=== PATIENT | male | born 1960 | race Caucasian/White ===

== ENCOUNTER → 2017-04-19 | Outpatient (CLI) | payer OTHER ==
--- NOTE | 2017-04-19 11:07 | PCVCIMAG ---
EXAM: BILATERAL CAROTID DUPLEX INDICATION: Carotid Occlusive Disease. FINDINGS: Doppler Measurements (centimeters per second): RIGHT: Peak CCA-70, Peak ECA-143, Diastolic ICA-52, Peak ICA-141, ICA/CCA Ratio-2.0. LEFT: Peak CCA-82, Peak ECA-164, Diastolic ICA-43, Peak ICA-111, ICA/CCA Ratio-1.4. RIGHT CAROTID: The carotid bulb has moderate plaque. The proximal internal carotid artery shows 50% stenosis. The common carotid artery shows no significant stenosis. The external carotid artery shows 50% stenosis. LEFT CAROTID: The carotid bulb has mild plaque. The proximal internal carotid artery shows <40% stenosis. The common carotid artery shows no significant stenosis. The external carotid artery shows 50% stenosis. Antegrade flow in both vertebral arteries. IMPRESSION: 50% stenosis of the right internal carotid artery with moderate plaque. <40% stenosis of the left internal carotid artery with mild plaque. LOC:[id number]
== END | disposition home or self-care (01) ==
LOC: PCVCIMAG 08:20
PROVIDERS: ATTEND Internal Medicine Cardiovascular Disease
DX: I65.23 Occlusion and stenosis of bilateral carotid arteries (principal)
CPT/HCPCS: 80061; 93880

== ENCOUNTER → 2018-02-03 | Outpatient (CLI) | payer OTHER ==
--- NOTE | 2018-02-03 11:21 | PCVCIMAG ---
APPROVED REPORT Study performed: 02/03/2018 10:25:55 Exam: Stress Echocardiogram Indication: CAD s/p CABG, CAD s/p AR Patient Location: Echo lab Stress Nurse: Viry Alcantar RN Status: routine Ht: 5 ft 9 in HR: 104 bpm BP: 124/72 mmHg Rhythm: Sinus Tachycardia Procedure The patient underwent an Exercise Stress Test using the Rogelio Protocol. Blood pressure, heart rate, and EKG were monitored. An Echocardiogram was performed by records management technician in four stages in quad fashion. At peak stress, four selected images were obtained and placed side by side with resting images for comparison. Stress Test Details Stress Test: Exercise stress testing was performed using a Rogelio protocol. HR Resting HR: 104 bpmMax Heart Rate (APMHR): 164 bpm Max HR Achieved: 166 bpmTarget HR (85% APMHR): 139 bpm % of APMHR: 101 Recovery HR: 130 bpm HR response to stress: Normal HR response to stress BP Resting BP: 124/72 mmHg Max BP: 140/76 mmHg Recovery BP: 130/74 mmHg ECG Resting ECG: Sinus Tachycardia w/ T wave abnormality consistent with hx of inferior AR Stress ECG: Sinus Rhythm w/ T wave abnormality ST Change: Nondiagnostic resting ST abnormalities Arrhythmia: isolated PVCs and rare couplet Recovery ECG: Sinus Rhythm, nonspecific ST-T abnormalities Recovery ST Change: Nondiagnostic resting ST abnormalities Recovery Arrhythmia: isolated PVCs and rare couplet Clinical Reason for Termination: Maximal effort Stress Symptoms: Dyspnea Exercise duration: 8 min 12 sec Highest Stage Achieved: Stage 3: 3.4 mph at 14% grade. Exercise capacity: 10.4 METs Overall Exercise Capacity for Age: Normal Scale: Sedentary Angina Score: None Pre-Stress Echo The resting Echocardiogram showed normal left ventricular contractility with an estimated Ejection Fraction of about 50-55%. Fixed distal septal, mid inferior and inferolateral hypokinesis due to history of AR and CABG. Post-Stress Echo The stress Echocardiogram showed normal left ventricular contractility with an estimated Ejection Fraction of about 60-65%. Fixed distal septal, mid inferior and inferolateral hypokinesis due to history of AR and CABG. Clinical No new clinical or ECG evidence for ischemia. Conclusion Clinical Response: Non-ischemic Exercise Capacity: Average Stress ECG Response: Non-ischemic Stress Echo Images: Non-ischemic The left ventricle is normal in size and wall thickness in both the rest and stress images. Other Information Study Quality: Adequate <Conclusion> The left ventricle is normal in size and wall thickness in both the rest and stress images.
== END | disposition home or self-care (01) ==
LOC: PCVCIMAG 10:41
PROVIDERS: ATTEND Internal Medicine Cardiovascular Disease
DX: I25.10 Atherosclerotic heart disease of native coronary artery without angina pectoris (principal); I10 Essential (primary) hypertension
CPT/HCPCS: 93325; 93351

== ENCOUNTER → 2018-09-12 | Outpatient (CLI) | payer OTHER | END | disposition home or self-care (01) | LOC: PCVCIMAG 12:39 | PROVIDERS: ATTEND Internal Medicine Cardiovascular Disease | DX: I65.23 Occlusion and stenosis of bilateral carotid arteries (principal); I77.9 Disorder of arteries and arterioles, unspecified; Z95.1 Presence of aortocoronary bypass graft | CPT/HCPCS: 93880 ==

== ENCOUNTER → 2019-04-10 | Outpatient (CLI) | payer SELFPAY ==
--- NOTE | 2019-04-14 15:08 | PCVCIMAG ---
APPROVED REPORT Study performed: 04/10/2019 14:28:27 Exam: Stress Echocardiogram Indication: CAD s/p CABG, htn, DOT clearance, hlp Patient Location: Echo lab Stress Nurse: Meeat Guerrier RN Status: routine Ht: 5 ft 9 in HR: 86 bpm BP: 132/82 mmHg Rhythm: NSR Procedure The patient underwent an Exercise Stress Test using the Rogeilo Protocol. Blood pressure, heart rate, and EKG were monitored. An Echocardiogram was performed by life support technician in four stages in quad fashion. At peak stress, four selected images were obtained and placed side by side with resting images for comparison. Stress Test Details Stress Test: Exercise stress testing was performed using a Rogelio protocol. HR Resting HR: 86 bpmMax Heart Rate (APMHR): 163 bpm Max HR Achieved: 176 bpmTarget HR (85% APMHR): 138 bpm % of APMHR: 107 Recovery HR: 114 bpm HR response to stress: Normal HR response to stress BP Resting BP: 132/82 mmHg Max BP: 180/86 mmHg Recovery BP: 174/80 mmHg BP response to stress: Normal blood pressure response to stress. ECG Resting ECG: Sinus Rhythm Stress ECG: Sinus Rhythm ST Change: non-specific ST changes Maximum ST Deviation: -2.1 mm Arrhythmia: PVC Recovery ECG: Sinus Rhythm Recovery ST Change: non-specific ST changes Recovery Arrhythmia: None Clinical Reason for Termination: Maximal effort Stress Symptoms: Dyspnea Exercise duration: 9 min 26 sec Highest Stage Achieved: Stage 4: 4.2 mph at 16% grade. Exercise capacity: 11.3 METs Overall Exercise Capacity for Age: Good Scale: Active Angina Score: None Stress ECG Conclusion Todd Treadmill Score is 19.5 which is Low risk. Pre-Stress Echo The resting Echocardiogram showed normal left ventricular contractility with an estimated Ejection Fraction of about 50-55%. The resting echocardiogram demonstrated normal wall motion in all wall segments. Fixed lateral/inferolateral hypokinesis post CABG and inferior TN. Post-Stress Echo The stress Echocardiogram showed normal left ventricular contractility with an estimated Ejection Fraction of about 60-65%. Compared to rest, there were no stress-induced wall motion abnormalities. Fixed lateral/inferolateral hypokinesis post CABG and inferior TN. No new regional wall motion abnormalities. Clinical No clinical or ECG evidence for ischemia. Conclusion Clinical Response: Non-ischemic Exercise Capacity: Average Stress ECG Response: Non-ischemic Stress Echo Images: Non-ischemic The left ventricle is normal in size and wall thickness in both the rest and stress images. Aortic sclerosis without stenosis or regurgitation. Mild tricuspid regurgitation with PAP of 34 mmHg. Trace mitral regurgitation and trace pulmonic regurgitation. Other Information Study Quality: Adequate <Conclusion> The left ventricle is normal in size and wall thickness in both the rest and stress images. Aortic sclerosis without stenosis or regurgitation. Mild tricuspid regurgitation with PAP of 34 mmHg. Trace mitral regurgitation and trace pulmonic regurgitation.
== END | disposition home or self-care (01) ==
LOC: PCVCIMAG 14:26
PROVIDERS: ATTEND Internal Medicine Cardiovascular Disease
DX: I36.1 Nonrheumatic tricuspid (valve) insufficiency (principal); I25.10 Atherosclerotic heart disease of native coronary artery without angina pectoris; I10 Essential (primary) hypertension; E78.5 Hyperlipidemia, unspecified; Z95.1 Presence of aortocoronary bypass graft
CPT/HCPCS: 93325; 93351